=== PATIENT | female | born 1960 | race American Indian/Alaskan Native ===

== ENCOUNTER 2018-11-16 05:36 | Emergency (ER) | payer OTHER ==
[2018-11-16 06:03] VITALS: BP 123/84
[2018-11-16] MEDS ORDERED: DELTASONE PO ONE (08:36)
[2018-11-16] MEDS ORDERED: DUONEB *Not for PRN Use IH ONE (08:36)
--- NOTE | 2018-11-16 08:42 | Emergency Department Report ---
- General Chief Complaint: Upper Respiratory Infection Stated Complaint: HEADACHE,EAR ACHE, CHEST PAINS Time Seen by Provider: 11/16/18 08:31 Source: patient Mode of arrival: Ambulatory Limitations: No Limitations - History of Present Illness Initial Comments: Ms. Aguilar is a 58-year-old female with history of hypertension who presents with 3 months of productive cough bloody brownish sputum. Wheezing. Over the last few days she's had a hoarse voice. She's also had ear pressure and nasal congestion. Her primary physician prescribed her albuterol and Symbicort 2 months ago for similar symptoms. She was unable to afford Symbicort. However albuterol does provide some relief. No previous history of asthma or tobacco use. Does have a history of seasonal allergies. MD Complaint: cough, nasal congestion -: Gradual, month(s) (3) Severity: mild Consistency: constant Improves With: other (albutero) Associated Symptoms: cough - Related Data Home Medications Medication Instructions Recorded Confirmed Last Taken Hydrochlorothiazide 12.5 mg PO DAILY 03/21/16 03/22/16 03/22/16 Previous Rx's Medication Instructions Recorded Last Taken Type Cetirizine HCl [ZyrTEC 10mg cap] 10 mg PO DAILY 30 Days #30 capsule 11/16/18 Unknown Rx Prednisone [predniSONE 10 mg 10 mg PO .TAPER #1 tab.ds.pk 11/16/18 Unknown Rx (6-Day Pack, 21 Tabs)] levoFLOXacin [Levaquin TAB] 500 mg PO QDAY 7 Days #7 tablet 11/16/18 Unknown Rx Allergies Allergy/AdvReac Type Severity Reaction Status Date / Time No Known Allergies Allergy Verified 03/21/16 15:14 ED Review of Systems ROS: Stated complaint: HEADACHE,EAR ACHE, CHEST PAINS Other details as noted in HPI Comment: All other systems reviewed and negative Constitutional: denies: fever, malaise Respiratory: cough ED Past Medical Hx - Past Medical History Previous Medical History?: Yes Hx Hypertension: Yes - Surgical History Past Surgical History?: Yes Additional Surgical History: Tubal ligation - Social History Smoking Status: Current Every Day Smoker Substance Use Type: None - Medications Home Medications: Home Medications Medication Instructions Recorded Confirmed Last Taken Type Hydrochlorothiazide 12.5 mg PO DAILY 03/21/16 03/22/16 03/22/16 History Cetirizine HCl [ZyrTEC 10mg cap] 10 mg PO DAILY 30 Days #30 capsule 11/16/18 Unknown Rx Prednisone [predniSONE 10 mg 10 mg PO .TAPER #1 tab.ds.pk 11/16/18 Unknown Rx (6-Day Pack, 21 Tabs)] levoFLOXacin [Levaquin TAB] 500 mg PO QDAY 7 Days #7 tablet 11/16/18 Unknown Rx ED Physical Exam - General Limitations: No Limitations General appearance: alert, in no apparent distress, other (hoarse voice) - Head Head exam: Present: atraumatic, normocephalic - Eye Eye exam: Present: normal appearance - ENT ENT exam: Present: mucous membranes moist - Neck Neck exam: Present: normal inspection, full ROM. Absent: tenderness, meningismus - Respiratory Respiratory exam: Present: normal lung sounds bilaterally. Absent: respiratory distress, wheezes, rales, rhonchi - Cardiovascular Cardiovascular Exam: Present: regular rate, normal rhythm, normal heart sounds. Absent: systolic murmur, diastolic murmur, rubs, gallop - GI/Abdominal GI/Abdominal exam: Present: soft, normal bowel sounds. Absent: distended, tenderness, guarding, rebound - Extremities Exam Extremities exam: Present: normal inspection - Back Exam Back exam: Present: normal inspection - Neurological Exam Neurological exam: Present: alert, oriented X3 - Psychiatric Psychiatric exam: Present: normal affect, normal mood - Skin Skin exam: Present: warm, dry, intact, normal color. Absent: rash ED Course Vital Signs 11/16/18 06:00 Temperature 98.5 F Pulse Rate 76 Respiratory 18 Rate Blood Pressure 123/84 O2 Sat by Pulse 97 Oximetry ED Medical Decision Making - Medical Decision Making Mrs. Aguilar presents laryngitis and acute bronchitis. Due to severity and duration of symptoms, and otherwise indicated. Prescribed Levaquin and prednisone. In the emergency department she received DuoNeb treatment and prednisone Strongly encourage daily Zyrtec use. She has been using to take intermittently Critical care attestation.: If time is entered above; I have spent that time in minutes in the direct care of this critically ill patient, excluding procedure time. ED Disposition Clinical Impression: Laryngitis, Acute bronchitis, Seasonal allergies Disposition: - TO HOME OR SELFCARE Is pt being admited?: No Does the pt Need Aspirin: No Condition: Stable Instructions: Acute Bronchitis (ED), Allergic Rhinitis (ED), Laryngitis (ED) Prescriptions: levoFLOXacin [Levaquin TAB] 500 mg PO QDAY 7 Days #7 tablet Prednisone [predniSONE 10 mg (6-Day Pack, 21 Tabs)] 10 mg PO .TAPER #1 tab.ds.pk Cetirizine HCl [ZyrTEC 10mg cap] 10 mg PO DAILY 30 Days #30 capsule Referrals: PRIMARY CARE, [Referring] - 3-5 Days
== END 2018-11-16 09:07 | disposition home or self-care (01) ==
LOC: ED 05:36
DX: J04.0 Acute laryngitis (principal); J20.9 Acute bronchitis, unspecified; J30.2 Other seasonal allergic rhinitis; I10 Essential (primary) hypertension; F17.200 Nicotine dependence, unspecified, uncomplicated; Z98.51 Tubal ligation status
CPT/HCPCS: 94640; 99283; J7512